=== PATIENT | male | born 2000 | race Two or more races ===

== ENCOUNTER 2025-04-11 09:41 | Day surgery (SDC) | payer OTHER, BC ==
[2025-04-11] MEDS ORDERED: propofoL 500 MG/50 ML 0 ML ONE (10:00)
[2025-04-11] MEDS ORDERED: Propofol 200 MG/20 ML SDV ONE (10:05)
[2025-04-11] MEDS: Lactated Ringers 1,000 ML IV SCH (10:55)
[2025-04-11] MEDS ORDERED: propofoL 500 MG/50 ML 50 ML ONE (11:41)
[2025-04-11] MEDS ORDERED: Lactated Ringers 1,000 ML IV SCH (12:00)
== END 2025-04-11 12:40 | disposition home or self-care (01) ==
LOC: MW.SDS 09:41
PROVIDERS: ATTEND Surgery
DX: K29.50 Unspecified chronic gastritis without bleeding (principal); K29.00 Acute gastritis without bleeding; B96.81 Helicobacter pylori [H. pylori] as the cause of diseases classified elsewhere; K21.00 Gastro-esophageal reflux disease with esophagitis, without bleeding; F17.210 Nicotine dependence, cigarettes, uncomplicated; E66.9 Obesity, unspecified; Z68.36 Body mass index [BMI] 36.0-36.9, adult
CPT/HCPCS: 43239; J2003; J2704; J7120; 00731